=== PATIENT | female | born 1995 | race Caucasian/White ===

== ENCOUNTER 2020-09-20 10:30 | Emergency (ER) | payer OTHER, MEDICAID ==
[~2020-09-20] VITALS: Ht 165.1 cm; Wt 63.5 kg
[2020-09-20 11:33] VITALS: BP 137/83
[2020-09-20] MEDS ORDERED: ALBUTEROL SULF 2.5 MG/0.5ML(0.5%) NEB SOLN NEB ONE (12:00)
[2020-09-20] MEDS ORDERED: IPRATROPIUM BROM 0.5 MG/2.5ML INH SOL NEB ONE (12:00)
[2020-09-20] MEDS ORDERED: methylPREDNISolone SOD SUCC 125 MG/2 ML VL IM ONE (12:00)
== END 2020-09-20 13:19 | disposition home or self-care (01) ==
LOC: ER 10:30
DX: J45.901 Unspecified asthma with (acute) exacerbation (principal); F41.9 Anxiety disorder, unspecified
CPT/HCPCS: 94640; 96372; 99283; J2930; J7644